=== PATIENT | male | born 1985 | race Caucasian/White ===

== ENCOUNTER 2021-01-25 19:11 | Emergency (ER) | payer OTHER ==
[~2021-01-25] VITALS: Ht 172.7 cm; Wt 99.8 kg
[2021-01-25] MEDS ORDERED: TETANUS/DIPHTHERIA TOX ADULT 0.5 ML SYR IM ONE (19:30)
== END 2021-01-25 20:05 | disposition home or self-care (01) ==
LOC: ER 19:22
DX: S61.512A Laceration without foreign body of left wrist, initial encounter (principal); W45.8XXA Other foreign body or object entering through skin, initial encounter; Y92.008 Other place in unspecified non-institutional (private) residence as the place of occurrence of the external cause
CPT/HCPCS: 90471; 90714; 99283

== ENCOUNTER 2025-08-05 01:00 | Emergency (ER) | payer OTHER ==
[~2025-08-05] VITALS: Ht 175.3 cm; Wt 111.1 kg
[2025-08-05 01:00] VITALS: PULSE 44; RESP 16; TEMP 98.6
[2025-08-05] MEDS ORDERED: SODIUM CHLORIDE FLUSH 10 ML SYR IV PRN (01:30)
[2025-08-05 01:35] LABS: BASOPHILS % 0.3 % (0.0-1.0); EOSINOPHILS % 1.5 % (0.0-6.0); LYMPHOCYTES % 22.0 % (18.0-39.1); MONOCYTES % 4.7 % (4.4-11.3); NEUTROPHILS % 71.2 % (38.7-80.0); RED CELL DISTRIBUTION WIDTH 11.8 % (11.7-14.4)
[2025-08-05 01:50] LABS: EST GLOMERULAR FILTRATION RATE 96.0 ML/MIN (>=60)
[2025-08-05] MEDS: KETOROLAC TROMETHAMINE 30 MG/ML VIAL IV STA (02:06)
[2025-08-05] MEDS ORDERED: IOPAMIDOL 370 MG/ML 100 ML INFUS..BTL INJ ONE (02:32)
[2025-08-05] MEDS: ONDANSETRON HCL INJ 2MG/ML 2ML 2 MG/ML VIAL IV STA (02:52)
[2025-08-05 03:08] LABS: LEUKOCYTE ESTERASE ,URINE NEGATIVE (NEGATIVE); PROTEIN,URINE DIPSTICK NEGATIVE (NEGATIVE)
[2025-08-05 03:09] LABS: URINE UROBILINOGEN 0.2 mg/dL (0.2 - 1)
[2025-08-05 03:18] LABS: EPITHELIAL CELLS,URINE RARE /LPF; WBC,URINE (MAN) 0-5 /HPF (0-5)
[2025-08-05] MEDS ORDERED: ONDANSETRON ODT4 MG SL (03:30)
[2025-08-05 03:37] VITALS: BP 159/82; O2SAT 100
== END 2025-08-05 03:35 | disposition home or self-care (01) ==
LOC: ER 01:54
DX: R10.30 Lower abdominal pain, unspecified (principal); K76.0 Fatty (change of) liver, not elsewhere classified; R94.31 Abnormal electrocardiogram [ECG] [EKG]
CPT/HCPCS: 36415; 74019; 74177; 80053; 81001; 82550; 83690; 84484; 85025; 93005; 99284; J1885; J2405; Q9967